=== PATIENT | female | born 1990 | race Caucasian/White ===

== ENCOUNTER 2022-09-28 14:11 | Emergency (ER) | payer MEDICAID ==
[~2022-09-28] VITALS: Ht 157.5 cm; Wt 95.5 kg
[2022-09-28 14:56] VITALS: BP 126/78
[2022-09-28] MEDS ORDERED: IBUP-2070 PO (15:26)
== END 2022-09-28 15:45 | disposition home or self-care (01) ==
LOC: EMS 14:26
DX: M72.2 Plantar fascial fibromatosis (principal); M79.672 Pain in left foot
CPT/HCPCS: 99282; Z7502